=== PATIENT | female | born 1960 | race Caucasian/White ===

== ENCOUNTER 2018-06-28 00:14 | Inpatient (IN) | payer OTHER ==
[~2018-06-28] VITALS: Ht 160 cm; Wt 75.3 kg
[2018-06-28] VITALS (8 sets, daily range): BP systolic 124–185; BP diastolic 69–101
--- NOTE | ~2018-06-28 | OP ---
[address] [address] OPERATIVE REPORT Name: TRACYJANNIE S Room: [address] IN [facility]#: [id number] Admission: 06/28/18 Attend Phys: Linda Alexis MD Discharge: Date of : 62 Report #: [id number] THIS REPORT FOR: //name// CC: Shakeel Alexis DATE OF SERVICE: 06/29/2018 Dr. Bobby Corrales dictating for Dr. Nikkie Lara. PREOPERATIVE DIAGNOSES: Acute cholecystitis with cholelithiasis. POSTOPERATIVE DIAGNOSES: Acute cholecystitis with cholelithiasis. SURGEON: Nikkie Lara DO CO-SURGEON: Bobby Corrales DO, PGY2. LEARNING AND DEVELOPMENT INTERN: Nai Carvajal DO, PGY-1. OPERATION PERFORMED: Laparoscopic cholecystectomy. ANESTHESIA TYPE: General and local. ESTIMATED BLOOD LOSS: 2 mL. SPECIMEN REMOVED: Gallbladder. COMPLICATIONS: None. DISPOSITION: PACU to floor. CONDITION: Stable. INDICATIONS FOR PROCEDURE: The patient is a pleasant 58-year-old female who presented to the Emergency Department on 06/28/2018 with chief complaints of abdominal pain, nausea and vomiting. Symptoms began on Monday prior after eating hotdogs and salad. She denies ever having this problem before. Since Monday, she has not been able to tolerate any p.o. intake. The patient was subsequently found to have acute cholecystitis, diagnosed on abdominal ultrasound and decision was made to proceed to the operating room for laparoscopic cholecystectomy. Full discussion of procedure, alternatives, risks and possible complications to include but not limited to postoperative bleeding, infection, pain, scarring, hernia, injury to other abdominal organs mainly stomach, bowel, liver, bile ducts, if bile duct injury were to occur transfer to tertiary care facility for further surgery, bile duct leak, biloma, [place] [address] OPERATIVE REPORT Name: TRACYJANNIE Ai Room: [address] IN [facility]#: [id number] Admission: 06/28/18 Attend Phys: Linda Alexis MD Discharge: Date of : 62 Report #: [id number] and anesthesia risks. The patient voiced understanding of the risks and agreed to proceed to the operating room. DESCRIPTION OF PROCEDURE: The patient was again seen and examined in the preoperative holding area. Preoperative antibiotics were given. Proper written informed consent was obtained. The patient was subsequently transported to the operating room suite and placed on the operating room table in supine position. At this time, anesthesia induced endotracheal intubation and general anesthesia was successfully done. SCDs were placed to bilateral lower extremity calves; grounding pad was placed to right lateral thigh. All patient's extremities and joints were padded and protected. The patient was prepped and draped using standard sterile fashion. A timeout was performed prior to onset of procedure. We began by making a horizontal incision just superior to the umbilicus. Using open Emmy technique, we entered the abdomen, dissecting down through the subcutaneous tissues to the level of fascia using blunt electrocautery. Once the fascia was located, Kochers were placed bilaterally. Fascia was elevated and transected using electrocautery. Once this was done, a hemostat was used to solano the peritoneum. A finger sweep was performed to ensure no adhesions and we were into the abdomen. Two 0 Vicryl stay sutures on a UR-6 were placed on both sides of the fascia and a 12 mm Emmy trocar was placed in the abdomen. Insufflation was first performed using low flow, then high flow. Next, a 10 mm 0 degree laparoscopic camera was inserted into the abdomen. Abdomen was surveyed noting a very distended gallbladder. Next, an additional 12 mm trocar was placed in the epigastric region and two additional 5 trocars were placed in the right upper quadrant. We began by elevating the gallbladder using a locking wavy grasper. Eduardo's pouch was identified and grasped after gentle blunt dissection and electrocautery of the peritoneal and omental attachments to the gallbladder. Once Jon's pouch was located and elevated, we began by dissecting out the cystic duct and artery using blunt [place] grasper and electrocautery starting laterally on the gallbladder. The cystic duct and artery were easily identified and dissected circumferentially around. Once this was performed, a critical view of safety was obtained. Intraoperative pictures were obtained and the cystic duct and artery were clipped using 10 mm clip regulator pin inserter. The cystic duct was clipped distally three times and proximally twice. Artery was clipped twice, both distally and proximally. These were then transected using laparoscopic curved scissors. After this was performed, gallbladder was excised from the gallbladder fossa using electrocautery. Hemostasis was achieved and we reevaluated our clips, which were noted to still be in good position. There was no leak and intraoperative pictures were obtained. Next, the gallbladder was placed into a 10 mm EndoCatch bag through the umbilical port. Abdomen was again surveyed, noting no ongoing hemorrhaging. Hemostasis was effective. Next, the abdomen was slowly desufflated and trocars were removed under direct visualization. Next, the abdomen was completely desufflated. Laparoscopic camera was removed. Emmy trocar was removed from the umbilical incision. The gallbladder was removed through the umbilical incision. Next, 2 Kochers were placed on the umbilical fascia. Next, an [address] [address] OPERATIVE REPORT Name: JANNIE MOLINA Room: [address] IN .R.#: [id number] Admission: 06/28/18 Attend Phys: Linda Alexis MD Discharge: Date of : 62 Report #: [id number] Vicryl vrxofg-ty-kzerm interrupted stitch on a UR-6 was used to close the fascia using a layered closure. Subcutaneous tissue was closed using a 3-0 Vicryl. Skin was closed using a running 4-0 Monocryl. The epigastric and right upper quadrant trocars were closed using interrupted 4-0 Monocryl. Abdomen was cleansed using wet and dry lap. Mastisol, Steri-Strips, 4 x 4's, and Tegaderms were applied for sterile dressing. The patient was extubated in the operating room and transferred to PACU in stable condition after a brief recovery from anesthesia with plan to return to the floor. The surgery went well without complication. By: 1722 [id number] Corrales DO /renee
[2018-06-28] MEDS ORDERED: ONDANSETRON HCL4 M2 PO (00:34)
[2018-06-28 00:46] LABS: ABSOLUTE EOSINOPHILS 0.1 thou/uL (0.0-0.7); ABSOLUTE LYMPHOCYTES 1.5 thou/uL (0.8-5.3); ABSOLUTE MONOCYTES 0.5 thou/uL (0.0-1.2); ABSOLUTE NEUTROPHILS 7.2 thou/uL (1.6-8.1); BASOPHILS 0.5 %; HEMATOCRIT 44.3 % (37.0-47.0); HEMOGLOBIN 14.8 gm/dL (12.0-15.0); LYMPHOCYTES 15.9 %; MCH 30.8 pg (26.0-34.0); MCHC 33.4 g/dL (28.0-37.0); MCV 92.3 fL (80.0-100.0); MONOCYTES 5.5 %; MPV 7.7 fl. (7.2-11.1); NUCLEATED RBCS 0 /100WBC; PLATELET COUNT* 250 thou/uL (150-400); POLYS 77.1 %; RDW-CV 13.1 % (10.5-14.5); WBC 9.4 thou/uL (4.0-11.0)
[2018-06-28 00:56] LABS: ANION GAP 2 mmol/L (7-16); BUN 11 mg/dL (7-18); CALCIUM 9.3 mg/dL (8.5-10.1); CHLORIDE 96 mmol/L (98-107); CO2 27 mmol/L (21-32); CREATININE 0.7 mg/dL (0.6-1.3); GLUCOSE 126 mg/dL (70-99); POTASSIUM 3.1 mmol/L (3.5-5.1); SODIUM 125 mmol/L (136-145)
[2018-06-28 01:03] LABS: ALBUMIN 3.8 g/dL (3.4-5.0); ALKALINE PHOSPHATASE 61 U/L (46-116); LIPASE 80 U/L (73-393); SGOT 14 U/L (15-37); SGPT 23 U/L (30-65); TOTAL BILIRUBIN 0.5 mg/dL (<0.1-1.0); TOTAL PROTEIN 7.6 g/dL (6.4-8.2); TROPONIN-I LEVEL <0.06 ng/mL (<0.06)
[2018-06-28 02:03] LABS: URINE BILIRUBIN NEGATIVE (Negative); URINE BLOOD 3+ (Negative); URINE CLARITY CLEAR; URINE COLOR YELLOW; URINE GLUCOSE-RANDOM NEGATIVE (Negative); URINE KETONES 1+ (Negative); URINE LEUKOCYTES-REFLEX NEGATIVE (Negative); URINE NITRITE-REFLEX NEGATIVE (Negative); URINE PROTEIN TR (Negative); URINE UROBILINOGEN 0.2 E.U./dl (0.2-1.0)
[2018-06-28 02:09] LABS: BACTERIA-REFLEX 1-9 Few /HPF (None Seen); CASTS None Seen /LPF (None Seen); CRYSTALS None Seen /LPF (None Seen); MUCUS 4-6 Moderate strn/LPF (None Seen); SQUAMOUS 4-10 Moderate /LPF (0-3); URINE RBC >20 Many /HPF (0-2); URINE WBC-REFLEX 0-5 Rare /HPF (0-5)
[2018-06-28 11:07] LABS: CALCIUM 8.9 mg/dL (8.5-10.1); CREATININE 0.7 mg/dL (0.6-1.3); MAGNESIUM 1.9 mg/dL (1.8-2.4); POTASSIUM 3.5 mmol/L (3.5-5.1)
--- NOTE | 2018-06-28 17:47 | EKG ---
[place] [address] ELECTROCARDIOGRAM REPORT Name: JANNIE MOLINA Room: [address] ADM IN .R.#: [id number] Admission: 06/28/18 Attend Phys: Linda Alexis MD Discharge: Date of : 62 Report #: [id number] THIS REPORT FOR: //name// [facility] ED Test Date: 2018-06-28 Test Time: 00:31:40 Pat Name: JANNIE MOLINA Department: Room: [facility] Gender: F Customer Relations Specialist: : 1960 Requested By: Moe Covarrubias Order Number: [id number] MD: King Lawrence Measurements Intervals [place] Rate: 93 P: 72 HI: 195 QRS: -34 QRSD: 146 T: 37 QT: 422 QTc: 525 Interpretive Statements Sinus rhythm Biatrial enlargement Right bundle branch block Inferior infarct, old Baseline wander in lead(s) V3 No previous ECG available for comparison Electronically Signed On 06-28-2018 17:47:06 TIMBER GRADER by King Lawrence [email or web address] <ELECTRONICALLY SIGNED> By: King Lawrence MD, FAC 06/28/18 1747 0031 003 King Lawrence MD, [facility] /EPI
[2018-06-29] VITALS: BP 133/88
[2018-06-29 04:00] VITALS: BP 141/84
[2018-06-29 05:12] LABS: ABSOLUTE BASOPHILS 0.1 thou/uL (0.0-0.2); ABSOLUTE EOSINOPHILS 0.1 thou/uL (0.0-0.7); ABSOLUTE LYMPHOCYTES 1.5 thou/uL (0.8-5.3); ABSOLUTE MONOCYTES 0.5 thou/uL (0.0-1.2); ABSOLUTE NEUTROPHILS 5.7 thou/uL (1.6-8.1); BASOPHILS 0.7 %; EOSINOPHILS 0.7 %; HEMATOCRIT 42.8 % (37.0-47.0); HEMOGLOBIN 14.2 gm/dL (12.0-15.0); MCH 30.7 pg (26.0-34.0); MCHC 33.2 g/dL (28.0-37.0); MCV 92.4 fL (80.0-100.0); MONOCYTES 6.2 %; MPV 7.9 fl. (7.2-11.1); NUCLEATED RBCS 0 /100WBC; PLATELET COUNT* 257 thou/uL (150-400); POLYS 73.4 %; RBC 4.63 mil/uL (4.20-5.00); RDW-CV 13.1 % (10.5-14.5); WBC 7.8 thou/uL (4.0-11.0)
[2018-06-29 05:21] LABS: CALCIUM 9.4 mg/dL (8.5-10.1); CREATININE 0.7 mg/dL (0.6-1.3)
[2018-06-29 05:23] LABS: POTASSIUM 2.8 mmol/L (3.5-5.1)
[2018-06-29 08:00] VITALS: BP 153/93
[2018-06-29 08:30] VITALS: BP 153/93
[2018-06-29 12:24] VITALS: BP 170/89
[2018-06-29 19:30] VITALS: BP 123/72
[2018-06-30] VITALS: BP 176/94
[2018-06-30 04:44] LABS: HEMATOCRIT 41.7 % (37.0-47.0); HEMOGLOBIN 13.8 gm/dL (12.0-15.0); MCH 30.8 pg (26.0-34.0); MCHC 33.1 g/dL (28.0-37.0); MPV 7.8 fl. (7.2-11.1); RBC 4.49 mil/uL (4.20-5.00); RDW-CV 13.1 % (10.5-14.5)
[2018-06-30 05:02] LABS: CREATININE 0.7 mg/dL (0.6-1.3); MAGNESIUM 1.9 mg/dL (1.8-2.4); PHOSPHORUS* 2.9 mg/dL (2.5-4.9); POTASSIUM 3.7 mmol/L (3.5-5.1)
[2018-06-30 08:00] VITALS: BP 180/90
[2018-06-30 16:14] VITALS: BP 136/91
[2018-06-30 20:00] VITALS: BP 151/95
[2018-07-01] VITALS: BP 140/88
[2018-07-01 04:00] VITALS: BP 152/91
[2018-07-01 04:33] LABS: ABSOLUTE EOSINOPHILS 0.1 thou/uL (0.0-0.7); ABSOLUTE MONOCYTES 0.7 thou/uL (0.0-1.2); BASOPHILS 0.5 %; EOSINOPHILS 1.3 %; HEMATOCRIT 46.3 % (37.0-47.0); HEMOGLOBIN 15.3 gm/dL (12.0-15.0); LYMPHOCYTES 22.9 %; MCH 30.8 pg (26.0-34.0); MCHC 33.1 g/dL (28.0-37.0); MONOCYTES 7.6 %; MPV 8.4 fl. (7.2-11.1); NUCLEATED RBCS 0 /100WBC; PLATELET COUNT* 259 thou/uL (150-400); POLYS 67.7 %; RBC 4.98 mil/uL (4.20-5.00); RDW-CV 12.9 % (10.5-14.5); WBC 8.9 thou/uL (4.0-11.0)
[2018-07-01 04:46] LABS: ALBUMIN 3.8 g/dL (3.4-5.0); CALCIUM 9.6 mg/dL (8.5-10.1); CREATININE 0.6 mg/dL (0.6-1.3); POTASSIUM 3.9 mmol/L (3.5-5.1); TOTAL BILIRUBIN 1.1 mg/dL (<0.1-1.0); TOTAL PROTEIN 7.2 g/dL (6.4-8.2)
[2018-07-01 08:00] VITALS: BP 142/86
[2018-07-01 12:00] VITALS: BP 140/87
[2018-07-01 16:00] VITALS: BP 138/90
[2018-07-01 20:00] VITALS: BP 101/57
[2018-07-02 00:05] VITALS: BP 139/77
[2018-07-02 04:00] VITALS: BP 144/93
[2018-07-02 04:38] LABS: ABSOLUTE EOSINOPHILS 0.1 thou/uL (0.0-0.7); ABSOLUTE LYMPHOCYTES 1.6 thou/uL (0.8-5.3); ABSOLUTE MONOCYTES 0.6 thou/uL (0.0-1.2); ABSOLUTE NEUTROPHILS 4.6 thou/uL (1.6-8.1); BASOPHILS 0.6 %; EOSINOPHILS 1.8 %; HEMATOCRIT 43.3 % (37.0-47.0); HEMOGLOBIN 14.6 gm/dL (12.0-15.0); LYMPHOCYTES 23.4 %; MCH 31.2 pg (26.0-34.0); MCHC 33.7 g/dL (28.0-37.0); MCV 92.4 fL (80.0-100.0); MONOCYTES 9.1 %; NUCLEATED RBCS 0 /100WBC; PLATELET COUNT* 229 thou/uL (150-400); POLYS 65.1 %; RBC 4.69 mil/uL (4.20-5.00); RDW-CV 12.9 % (10.5-14.5); WBC 7.1 thou/uL (4.0-11.0)
[2018-07-02 05:00] LABS: ALBUMIN 3.2 g/dL (3.4-5.0); CREATININE 0.7 mg/dL (0.6-1.3); POTASSIUM 3.2 mmol/L (3.5-5.1); TOTAL BILIRUBIN 0.9 mg/dL (<0.1-1.0); TOTAL PROTEIN 6.6 g/dL (6.4-8.2)
[2018-07-02 08:00] VITALS: BP 156/94
[2018-07-02 12:18] VITALS: BP 141/88
[2018-07-02 12:53] LABS: AMP/METHAMP Negative (Negative); BARBITURATES Negative (Negative); BENZODIAZEPINES Negative (Negative); COCAINE Negative (Negative); METHADONE Negative (Negative); OPIATES Negative (Negative); PCP Negative (Negative); THC Negative (Negative)
[2018-07-02 17:08] VITALS: BP 149/84
[2018-07-02 20:00] VITALS: BP 101/57
[2018-07-03] VITALS: BP 96/51
[2018-07-03 04:00] VITALS: BP 97/54
[2018-07-03 07:50] LABS: CALCIUM 9.4 mg/dL (8.5-10.1); CREATININE 0.7 mg/dL (0.6-1.3); POTASSIUM 3.6 mmol/L (3.5-5.1)
[2018-07-03 08:00] VITALS: BP 101/55
[2018-07-03 11:33] VITALS: BP 103/49
[2018-07-03] MEDS ORDERED: LISINOPRIL10 MG PO (11:44)
[2018-07-03 11:49] VITALS: BP 103/49
[2018-07-03 12:09] VITALS: BP 107/61
--- NOTE | 2018-07-04 11:09 | PATH ---
[facility] [address] [place] [address] PATHOLOGY RPT PROCEDURE Name: JANNIE MOLINA Room: [address] IN [facility].#: [id number] Admission: 06/28/18 Date of : 62 Discharge: 07/03/18 Report #: [id number] Path Case #: [id number] [facility] Accession Number: [id number] . 01 Material submitted: . GALLBLADDER WITH CONTENTS . 01 Clinical history: . Cholecystitis and cholelithiasis . 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 (KARIME/db; 07/03/2018) LBQ/07/03/2018 . 02 Electronically signed: . Jluis Estrella MD, Pathologist NPI- [id number] . 01 Gross description: . The specimen is received in formalin, labeled "Jannie Molina, gallbladder with cont", is an intact, distended gallbladder 9.0 x 3.7 x 2.8 cm with a monsivais-yellow serosa. The lumen is filled with yellow-monsivais viscous bile and an oval irregularly surfaced 3.0 x 1.7 x 1.5 cm monsivais-yellow calculus. The mucosa is effaced and appears trabeculated. The wall is fibrous and ranges from 0.2 cm up to 0.5 cm. No discrete masses are identified. Shuttle Driver tissue is submitted in A1-A2. ([facility]; 07/02/2018) SHS/SHS . 02 Pathologist provided ICD-10: K80.10 . 02 CPT . 042263 Specimen Comment: A courtesy copy of this report has been sent to Specimen Comment: [phone], , . Specimen Comment: Report sent to ,DR BUSTAMANTE / DR MOY Specimen Comment: A duplicate report has been generated due to demographic updates. Performed at: [address] [facility] [id number] MD Adonay Weir MD Phone: [phone] Performed at: [address] [place], [place] [id number] [place] [address] PATHOLOGY RPT PROCEDURE Name: JANNIE MOLINA Room: [address] IN M.R.#: [id number] Admission: 06/28/18 Date of : 62 Discharge: 07/03/18 Report #: [id number] Path Case #: [id number] [facility] MD Phone: [phone]
[2018-07-04] MEDS ORDERED: ZOFRAN ODT4 MG PO (19:43)
[2018-07-04] MEDS ORDERED: PEPCID20 MG PO (19:43)
== END 2018-07-03 13:37 | disposition home or self-care (01) | DRG 418 ==
LOC: M.ERS 00:14 → M.2W 01:58 → M.TBA-ER 01:58 → M.2W 02:21
PROVIDERS: Emergency Medicine Emergency Medical Services; Internal Medicine; Surgery; ADMIT Family Medicine
PROC: 0FT44ZZ Resection of Gallbladder, Percutaneous Endoscopic Approach (ICD-10-PCS; principal; 2018-06-29)
DX: K80.00 Calculus of gallbladder with acute cholecystitis without obstruction (principal); E87.1 Hypo-osmolality and hyponatremia; R65.10 Systemic inflammatory response syndrome (SIRS) of non-infectious origin without acute organ dysfunction; E87.6 Hypokalemia; F17.210 Nicotine dependence, cigarettes, uncomplicated; E86.0 Dehydration; F43.9 Reaction to severe stress, unspecified; F43.20 Adjustment disorder, unspecified; G43.909 Migraine, unspecified, not intractable, without status migrainosus; Z79.899 Other long term (current) drug therapy; Z88.8 Allergy status to other drugs, medicaments and biological substances

== ENCOUNTER 2018-07-04 16:49 | Emergency (ER) | payer OTHER ==
[~2018-07-04] VITALS: Ht 157.5 cm; Wt 73.0 kg
[~2018-07-04 16:49] MED LIST: LISINOPRIL10 MG PO; ONDANSETRON HCL4 M2 PO
[2018-07-04 17:19] LABS: ABSOLUTE EOSINOPHILS 0.1 thou/uL (0.0-0.7); ABSOLUTE LYMPHOCYTES 1.4 thou/uL (0.8-5.3); ABSOLUTE MONOCYTES 0.4 thou/uL (0.0-1.2); ABSOLUTE NEUTROPHILS 4.8 thou/uL (1.6-8.1); BASOPHILS 0.5 %; HEMATOCRIT 41.9 % (37.0-47.0); HEMOGLOBIN 14.1 gm/dL (12.0-15.0); LYMPHOCYTES 20.8 %; MCH 31.2 pg (26.0-34.0); MCHC 33.6 g/dL (28.0-37.0); MCV 92.9 fL (80.0-100.0); MONOCYTES 6.6 %; MPV 7.9 fl. (7.2-11.1); NUCLEATED RBCS 0 /100WBC; PLATELET COUNT* 255 thou/uL (150-400); POLYS 71.1 %; RBC 4.51 mil/uL (4.20-5.00); WBC 6.8 thou/uL (4.0-11.0)
[2018-07-04 17:32] LABS: CALCIUM 9.3 mg/dL (8.5-10.1); CREATININE 0.8 mg/dL (0.6-1.3); POTASSIUM 3.8 mmol/L (3.5-5.1)
[2018-07-04 17:34] LABS: ALBUMIN 3.4 g/dL (3.4-5.0); TOTAL BILIRUBIN 0.6 mg/dL (<0.1-1.0); TOTAL PROTEIN 6.9 g/dL (6.4-8.2)
[2018-07-04 18:14] LABS: URINE BILIRUBIN NEGATIVE (Negative); URINE BLOOD 1+ (Negative); URINE CLARITY CLEAR; URINE COLOR YELLOW; URINE GLUCOSE-RANDOM NEGATIVE (Negative); URINE KETONES TRACE (Negative); URINE LEUKOCYTES-REFLEX NEGATIVE (Negative); URINE NITRITE-REFLEX NEGATIVE (Negative); URINE PROTEIN NEGATIVE (Negative); URINE SPECIFIC GRAVITY <= 1.005 (1.005-1.030); URINE UROBILINOGEN 0.2 E.U./dl (0.2-1.0)
[2018-07-04 18:21] LABS: BACTERIA-REFLEX 1-9 Few /HPF (None Seen); SQUAMOUS 0-3 Few /LPF (0-3); URINE RBC 3-10 Few /HPF (0-2); URINE WBC-REFLEX 0-5 Rare /HPF (0-5)
[2018-07-04] MEDS ORDERED: ZOFRAN ODT4 MG PO (19:43)
[2018-07-04] MEDS ORDERED: PEPCID20 MG PO (19:43)
[2018-07-04 20:20] VITALS: BP 110/60
== END 2018-07-04 20:21 | disposition home or self-care (01) ==
LOC: M.ERS 16:49
PROVIDERS: Nurse Practitioner Family
DX: R11.2 Nausea with vomiting, unspecified (principal); F17.210 Nicotine dependence, cigarettes, uncomplicated; Z98.890 Other specified postprocedural states; Z88.1 Allergy status to other antibiotic agents